=== PATIENT | female | born 1995 ===

== ENCOUNTER 2022-04-30 21:51 | Inpatient (IN) ==
[2022-04-30] MEDS ORDERED: ACETAMINOPHEN 500 MG TABLET PO STA (22:34)
[2022-04-30] MEDS ORDERED: ACETAMINOPHEN 500 MG TABLET ONE (22:35)
[2022-04-30] MEDS ORDERED: amLODIPine 5 MG TABLET PO STA (23:55)
[2022-05-01] MEDS ORDERED: PIPERACILLIN/TAZOBACTAM 3,375 MG in SODIUM CHLORIDE 0.9% 100 ML IV STA (00:06)
[2022-05-01] MEDS ORDERED: SODIUM CHLORIDE 0.9% 1,000 ML IV PRN ×4 (00:06→12:07)
[2022-05-01] MEDS ORDERED: LEVOFLOXACIN INJ 750 MG/150 ML PREMIX IV STA (00:12)
[2022-05-01] MEDS ORDERED: ONDANSETRON 4 MG/2 ML VIAL IV PRN (00:13)
[2022-05-01] MEDS ORDERED: diphenhydrAMINE CAP 25 MG CAPSULE PO PRN (00:13)
[2022-05-01] MEDS ORDERED: hydrALAZINE 20 MG/1 ML VIAL IV PRN (00:13)
[2022-05-01] MEDS ORDERED: ACETAMINOPHEN 325 MG TABLET PO PRN (00:13)
[2022-05-01] MEDS ORDERED: ZALEPLON 5 MG CAPSULE PO PRN (00:13)
[2022-05-01] MEDS ORDERED: NICOTINE 21 MG/24 HR PATCH TRANSDERM PRN (00:13)
[2022-05-01] MEDS ORDERED: MORPHINE 2 MG/1 ML SYRINGE IV PRN (00:13)
[2022-05-01] MEDS ORDERED: guaiFENesin/DM ER 600-30 MG TABLET PO PRN (00:13)
[2022-05-01 00:53] LABS: Basophils % 0.1 % (0.0-0.8); Hematocrit 20.1 VOL% (35.7-47.0); Immature Granulocytes % 1.1 %; Immature Granulocytes Absolute 0.15 #; Lymphocytes # 1.4 10*3/uL (1.4-4.0); Lymphocytes % 9.9 % (21.3-54.2); Mean Corpuscular HGB Conc 27.4 GM/DL (32-36); Mean Corpuscular Volume 65.7 FL (87-102); Mean Platelet Volume 11.6 FL (9.6-12.0); Monocytes # 0.7 10*3/uL (0.11-0.8); Monocytes % 4.7 % (1.7-12.7); NRBC # 0.05 10*3/uL; Neutrophils % 84.2 % (38.7-73.9); Platelet Count 268 T/CUMM (130-400); Red Blood Count 3.06 MC/CUMM (3.8-5.5); Red Cell Distribution Width 18.6 % (9.3-17.3); White Blood Count 14.1 T/CUMM (4-12)
[2022-05-01 00:59] LABS: Calcium 8.2 MG/DL (8.5-10.1); Hemoglobin 5.5 GM/DL (12.0-16.0); Osmolality,Calculated 279.4 MOS/KG (273-304); Potassium 3.3 MMOL/L (3.5-5.1)
[2022-05-01] MEDS ORDERED: ACETAMINOPHEN 500 MG TABLET PO STA (04:32)
[2022-05-01 07:50] LABS: Basophils % 0.1 % (0.0-0.8); Eosinophils % 0.1 % (0.00-10.9); Hematocrit 23.3 VOL% (35.7-47.0); Immature Granulocytes % 1.1 %; Immature Granulocytes Absolute 0.15 #; Lymphocytes # 1.9 10*3/uL (1.4-4.0); Lymphocytes % 14.1 % (21.3-54.2); Mean Corpuscular HGB Conc 29.6 GM/DL (32-36); Mean Corpuscular Volume 70.2 FL (87-102); Mean Platelet Volume 10.7 FL (9.6-12.0); Monocytes # 0.9 10*3/uL (0.11-0.8); Monocytes % 6.7 % (1.7-12.7); NRBC # 0.05 10*3/uL; Neutrophils % 77.9 % (38.7-73.9); Platelet Count 236 T/CUMM (130-400); Red Blood Count 3.32 MC/CUMM (3.8-5.5); Red Cell Distribution Width 22.7 % (9.3-17.3); White Blood Count 13.8 T/CUMM (4-12)
[2022-05-01 07:52] LABS: Hemoglobin 6.9 GM/DL (12.0-16.0)
[2022-05-01 07:53] LABS: Calcium 8.3 MG/DL (8.5-10.1); Osmolality,Calculated 282.1 MOS/KG (273-304); Potassium 3.3 MMOL/L (3.5-5.1)
[2022-05-01] MEDS: POTASSIUM CHLORIDE RIDER 10 MEQ/100 ML PREMIX IV PRN ×4 (07:54→15:40)
[2022-05-01 08:08] LABS: Hypochromia 2+; Microcytosis 1+; Ovalocytes Slight; Polychromasia Slight
[2022-05-01 08:09] LABS: Platelet Estimate Normal; Spherocytes Slight
[2022-05-01] MEDS: amLODIPine 10 MG TABLET PO SCH (08:50)
[2022-05-01] MEDS: PANTOPRAZOLE 40 MG TABLET PO SCH (08:50)
[2022-05-01] MEDS: PIPERACILLIN/TAZOBACTAM 3,375 MG in SODIUM CHLORIDE 0.9% 100 ML IV SCH ×2 (09:33→22:28)
[2022-05-02 02:42] LABS: Hematocrit 25.8 VOL% (35.7-47.0); Hemoglobin 7.6 GM/DL (12.0-16.0)
[2022-05-02 05:35] LABS: Basophils % 0.1 % (0.0-0.8); Eosinophils # 0.1 10*3/uL (0.0-0.87); Eosinophils % 1.1 % (0.00-10.9); Hematocrit 26.4 VOL% (35.7-47.0); Hemoglobin 7.8 GM/DL (12.0-16.0); Immature Granulocytes % 0.7 %; Immature Granulocytes Absolute 0.06 #; Lymphocytes # 2.5 10*3/uL (1.4-4.0); Lymphocytes % 27.2 % (21.3-54.2); Mean Corpuscular HGB Conc 29.5 GM/DL (32-36); Mean Corpuscular Volume 73.7 FL (87-102); Mean Platelet Volume 11.2 FL (9.6-12.0); Monocytes # 0.5 10*3/uL (0.11-0.8); Monocytes % 5.6 % (1.7-12.7); NRBC # 0.02 10*3/uL; Neutrophils % 65.3 % (38.7-73.9); Platelet Count 236 T/CUMM (130-400); Red Blood Count 3.58 MC/CUMM (3.8-5.5); Red Cell Distribution Width 22.7 % (9.3-17.3); White Blood Count 9.1 T/CUMM (4-12)
[2022-05-02 05:37] LABS: Basophils % 0.3 % (0.0-0.8); Eosinophils # 0.1 10*3/uL (0.0-0.87); Eosinophils % 1.2 % (0.00-10.9); Hematocrit 26.2 VOL% (35.7-47.0); Hemoglobin 7.8 GM/DL (12.0-16.0); Immature Granulocytes % 0.7 %; Immature Granulocytes Absolute 0.07 #; Lymphocytes # 2.6 10*3/uL (1.4-4.0); Lymphocytes % 26.9 % (21.3-54.2); Mean Corpuscular HGB Conc 29.8 GM/DL (32-36); Mean Corpuscular Volume 72.4 FL (87-102); Mean Platelet Volume 10.9 FL (9.6-12.0); Monocytes # 0.6 10*3/uL (0.11-0.8); Monocytes % 6.3 % (1.7-12.7); NRBC # 0.04 10*3/uL; Neutrophils % 64.6 % (38.7-73.9); Platelet Count 225 T/CUMM (130-400); Red Blood Count 3.62 MC/CUMM (3.8-5.5); Red Cell Distribution Width 22.8 % (9.3-17.3); White Blood Count 9.5 T/CUMM (4-12)
[2022-05-02 05:53] LABS: Calcium 8.7 MG/DL (8.5-10.1); Osmolality,Calculated 280.3 MOS/KG (273-304); Potassium 3.4 MMOL/L (3.5-5.1)
[2022-05-02 06:02] LABS: Folate 10.35 NG/ML (5.38-24.0); Vitamin B12 401 PG/ML (211-911)
[2022-05-02 06:06] LABS: Hypochromia 1+
[2022-05-02 06:07] LABS: Microcytosis 1+; Ovalocytes Slight; Platelet Estimate Normal; Polychromasia Slight; Target Cells Slight
[2022-05-02 06:18] LABS: % Iron Saturation 5.6 % (18-50); Ferritin 26.2 ng/mL (8-252)
[2022-05-02] MEDS: PIPERACILLIN/TAZOBACTAM 3,375 MG in SODIUM CHLORIDE 0.9% 100 ML IV SCH ×2 (06:35→14:33)
[2022-05-02 06:48] LABS: Sedimentation Rate-Westergren 102 MM/HR (0-20)
[2022-05-02 09:16] LABS: Hemoglobin A1 (Alkaline) 97.8 % (96.5-98.5); Hemoglobin A2 (Alkaline) 2.2 % (1.5-3.5)
[2022-05-02] MEDS: amLODIPine 10 MG TABLET PO SCH (09:20)
[2022-05-02] MEDS: PANTOPRAZOLE 40 MG TABLET PO SCH (09:20)
[2022-05-02] MEDS ORDERED: POTASSIUM CHLORIDE 20 MEQ TABLET PO ONE (09:30)
[2022-05-02] MEDS ORDERED: FERRIC GLUCONATE COMPLEX 125 MG in SODIUM CHLORIDE 0.9% 100 ML IV SCH (10:30)
[2022-05-02] MEDS ORDERED: medroxyPROGESTERone 10 MG TABLET PO SCH (11:00)
[2022-05-02] MEDS ORDERED: metFORMIN 500 MG TABLET PO SCH (11:30)
[2022-05-02 15:24] VITALS: BP 146/82
== END 2022-05-02 16:42 | disposition home or self-care (01) | DRG 812 ==
LOC: EDSEX → EDUNIT# → N.ED 21:51 → N.EDINP 05-01 00:13 → N.3E 05-01 15:27
PROVIDERS: ADMIT Hospitalist; ATTEND Hospitalist